=== PATIENT | male | born 1945 | race Caucasian/White ===

== ENCOUNTER 2020-10-22 19:43 | Emergency (ER) | payer MEDICARE, OTHER ==
[~2020-10-22] VITALS: Ht 180.3 cm; Wt 99.5 kg
[2020-10-22] MEDS ORDERED: ATOR40TA75 PO (20:02)
[2020-10-22] MEDS ORDERED: CORE25TA PO (20:02)
[2020-10-22] MEDS ORDERED: PLAV1TAB2 PO (20:02)
[2020-10-22] MEDS ORDERED: AMLO1TAB24 PO (20:02)
[2020-10-22] MEDS ORDERED: LISI40TA4 PO (20:02)
[2020-10-22 20:42] LABS: BASO % 0.3 % (0.0-1.0); EOS # 0.2 10^3/uL (0.0-0.5); EOS % 1.2 % (0.0-3.0); HEMATOCRIT 42.5 % (42.0-52.0); HEMOGLOBIN 14.1 g/dl (13.5-17.5); LYMPH # 1.1 10^3/uL (1.5-5.0); LYMPH % 8.6 % (24.0-44.0); MEAN CORPUSCULAR HEMOGLOBIN 30.8 pg (27.0-33.0); MEAN CORPUSCULAR HGB CONC 33.2 g/dl (32.0-36.5); MEAN CORPUSCULAR VOLUME 92.8 fl (80.0-96.0); MONO # 1.1 10^3/uL (0.0-0.8); MONO % 9.3 % (2.0-8.0); NEUTROPHILS # 9.7 10^3/uL (1.5-8.5); NEUTROPHILS % 80.1 % (36.0-66.0); PLATELET COUNT, AUTOMATED 163 10^3/uL (150-450); RED BLOOD COUNT 4.58 10^6/uL (4.30-6.10); WHITE BLOOD COUNT 12.2 10^3/uL (4.0-10.0)
[2020-10-22 21:05] LABS: ALBUMIN 3.6 GM/DL (3.2-5.2); BILIRUBIN,DIRECT 0.3 MG/DL (0.0-0.2); BILIRUBIN,TOTAL 1.6 MG/DL (0.2-1.0)
[2020-10-22] MEDS ORDERED: ACETAMINOPHEN 500 MG TAB PO ONE (22:15)
[2020-10-22] MEDS ORDERED: ISOVUE-370 76% 100ML VIAL As Ordered ONE (22:17)
[2020-10-22] MEDS ORDERED: NS 1,000 ML IV ONE (23:30)
[2020-10-23] MEDS ORDERED: AUGMENTIN 875 MG TAB PO ONE
[2020-10-23] MEDS ORDERED: AUGM875T28 PO (00:09)
[2020-10-23 00:21] VITALS: BP 133/73
== END 2020-10-23 01:21 | disposition home or self-care (01) ==
LOC: M ED 19:43
DX: K57.32 Diverticulitis of large intestine without perforation or abscess without bleeding (principal); I10 Essential (primary) hypertension; E78.5 Hyperlipidemia, unspecified; I25.2 Old myocardial infarction; Z91.030 Bee allergy status; F17.210 Nicotine dependence, cigarettes, uncomplicated
CPT/HCPCS: 74021; 74177; 80047; 80076; 81001; 83690; 85025; 96360; 96361; 99284; Q9967